=== PATIENT | female | born 1945 | race Caucasian/White ===

== ENCOUNTER → 2020-10-26 | Outpatient (REF) | payer MEDICARE | LOC: M LAB REF 17:43 | PROVIDERS: ATTEND Internal Medicine Nephrology | DX: N18.32 Chronic kidney disease, stage 3b (principal); I10 Essential (primary) hypertension ==

== ENCOUNTER → 2020-11-18 | Outpatient (CLI) | payer MEDICARE ==
[~2020-11-18] MED LIST: COLA100C5 PO; EQL400CA9 PO; LISI10TA22 PO; MELA3TAB49 PO; METF-838 PO; NIFE15CA PO; OXYC1TAB23 PO; SIMV40TA20 PO
== END ==
LOC: M LABSMTC 09:06
PROVIDERS: ATTEND Anesthesiology
DX: Z01.812 Encounter for preprocedural laboratory examination (principal)

== ENCOUNTER 2020-11-23 09:38 | Day surgery (SDC) | payer MEDICARE ==
[2020-11-23] VITALS (7 sets, daily range): BP systolic 130–159; BP diastolic 67–90
[~2020-11-23] VITALS: Ht 160 cm; Wt 86.6 kg
[~2020-11-23 09:38] MED LIST changes: +ACETAMINOPHEN *IV* 1,000 MG IV ONE; +LIDOCAINE 1% MDV 20ML VIAL SQ PRN; +LIDOCAINE 2% 100MG/5ML SDV (FOR ANES.) As Ordered ONE; +LR 1,000 ML IV ONE; +MIDAZOLAM INJ 2MG/2ML VIAL (J2250 PER 1MG) As Ordered ONE; -OXYC1TAB23 PO; +ROCURONIUM BROMIDE 50 MG/5 ML VIAL As Ordered ONE; +ceFAZolin SOD 2 GM in IV 1 EA IV ONE; +fentaNYL 250 MCG/5 ML INJECTION (J3010) As Ordered ONE; +propofoL 200 MG/20 ML VIAL As Ordered ONE
[2020-11-23 10:12] LABS: HEMATOCRIT 34.3 % (36.0-47.0); HEMOGLOBIN 11.7 g/dl (12.0-15.5); MEAN CORPUSCULAR HEMOGLOBIN 31.3 pg (27.0-33.0); MEAN CORPUSCULAR HGB CONC 34.1 g/dl (32.0-36.5); MEAN CORPUSCULAR VOLUME 91.7 fl (80.0-96.0); PLATELET COUNT, AUTOMATED 225 10^3/uL (150-450); RED BLOOD COUNT 3.74 10^6/uL (4.00-5.40); WHITE BLOOD COUNT 5.7 10^3/uL (4.0-10.0)
[2020-11-23 10:39] LABS: CALCIUM LEVEL 9.9 MG/DL (8.8-10.2); CREATININE FOR GFR 1.24 MG/DL (0.55-1.30); GLOMERULAR FILTRATION RATE 45.1 (>39); POTASSIUM SERUM 4.1 MEQ/L (3.5-5.1)
[2020-11-23] MEDS ORDERED: LIDOCAINE W/EPINEPHRINE 1% 20ML VIAL As Ordered ONE (11:45)
[2020-11-23] MEDS ORDERED: VASOPRESSIN INJ 20 UNITS/ML VIAL As Ordered ONE (11:45)
[2020-11-23] MEDS ORDERED: ACETAMINOPHEN 1000MG 100ML IV BTL (OFIRMEV) (J0131 PER 10MG) As Ordered ONE (12:43)
[2020-11-23] MEDS ORDERED: ONDANSETRON 4MG/2ML VIAL As Ordered ONE (12:43)
[2020-11-23] MEDS ORDERED: KETOROLAC 60MG 2ML VIAL As Ordered ONE (12:43)
[2020-11-23] MEDS ORDERED: SUGAMMADEX SODIUM 500 MG/5 ML VIAL (BRIDION) As Ordered ONE (13:02)
[2020-11-23] MEDS ORDERED: ESTROGENS VAGINAL CREAM 30GM As Ordered ONE (13:18)
[2020-11-23] MEDS ORDERED: OXYC1TAB23 PO (13:44)
[2020-11-23] MEDS ORDERED: PERCOCET 5MG/325MG TAB PO PRN (14:00)
[2020-11-23] MEDS ORDERED: ONDANSETRON 4MG/2ML VIAL IV PRN (14:00)
[2020-11-23] MEDS ORDERED: HYDROMORPHONE HCL 0.5 MG/ 0.5 ML SYRINGE (J1170 PER 1) IV PRN (14:00)
[2020-11-23] MEDS ORDERED: fentaNYL 100 MCG/2 ML INJECTION (J3010) IV PRN (14:00)
[2020-11-23] MEDS ORDERED: oxyCODONE 5MG TAB PO PRN (14:00)
[2020-11-23] MEDS ORDERED: LR 1,000 ML IV SCH ×2 (14:00)
--- NOTE | 2020-11-23 17:52 | RO ---
OPERATIVE NOTE DATE OF OPERATION: 11/23/2020 Layla is a 75-year-old female with a history of complete vaginal vault prolapse for hysterectomy. After counseling, a decision was made to proceed with sacrospinal vault suspension, possible posterior-anterior repair. PREOPERATIVE DIAGNOSIS: 1. Complete vaginal vault prolapse, post-hysterectomy. POSTOPERATIVE DIAGNOSIS: 1. Complete vaginal vault prolapse, post-hysterectomy. PROCEDURE: Sacrospinal vault suspension using an Anchorsure. Posterior repair. Perineorrhaphy. SURGEON: Aamir Calvillo DO GRAPHICS PROGRAMMER: ANESTHESIA: General COMPLICATIONS: None. ESTIMATED BLOOD LOSS: 100 mL FINDINGS: Complete vaginal vault prolapse with a very large rectocele. DESCRIPTION OF PROCEDURE: After obtaining informed consent, the patient was taken to the operating room where general anesthetic was found to be adequate. She was then draped and prepped in the usual sterile fashion in the dorsal lithotomy position. At this point, examination under anesthesia performed, revealed a complete vaginal vault prolapse with a significant rectocele, no enterocele noted. At this point, a weighted speculum was placed into the posterior fornix of the vagina. The apex of the vagina was identified. The sacrospinous ligament was palpated. An Allis was placed at the apex of the vaginal mucosa. Then a small incision approximately 1/2 inch was done at the apex. The vagina mucosa was dissected down towards the sacrospinous ligament. The sacrospinous ligament was palpated. At this point, an Anchorsure was brought to the sacrospinous ligament and anchored into the sacrospinous ligament. This was brought back out through the vagina, hemostat placed on it for later use. I then did hydrodissection with Pitressin solution in a midline fashion using three Allises. The apex of the vagina was held on tension as well as the vaginal orifice. After proper hydrodissection, a midline incision was made with a 5 blade. The posterior rectal mucosa was dissected off on either side. These were pushed all the way down to the reduce the significant amount of rectocele that was noted and in an imbricated fashion, the rectocele was then reduced with a series of interrupted [id number] sutures. After reducing the rectocele, the excess posterior vaginal tissue was cut away and sent to pathology for final diagnosis. We then placed a series of interrupted sutures in the vaginal mucosa. The top two was left for closure after the sacrospinous ligament fixation was completed. The posterior vaginal mucosa was closed all the way down to the orifice. At this point, the Dubose needle was used and one string of the Anchorsure was then anchored to the apex of the vagina, creating a jacquelyn. At this point, the apex of the vagina was brought to the right sacrospinous ligament. This was kind of brought in not to overtighten that area. After anchoring the apex of the vagina, then the two preplaced sutures at the level of the apex was then closed to bury the knot from the permanent suture from the Anchorsure. At this point, a good result was noted. I then turned my attention to the perineal body. A perineorrhaphy was performed. Excess skin and vaginal mucosa was removed. This was closed using a 2-0 Vicryl suture. After proper closure and good hemostasis was achieved, we placed a 2 inch packing soaked in Premarin cream. Galvan catheter was placed in the bladder for drainage for approximately 100 mL of clear urine. At this point, all instruments were removed. The patient tolerated the procedure well. She was then transferred to recovery room in stable condition. [facility]
[2020-11-23] MEDS: IBUPROFEN 800 MG TAB PO SCH (19:00)
[2020-11-23] MEDS ORDERED: SIMVASTATIN 40 MG TAB PO SCH (21:00)
[2020-11-24] MEDS: IBUPROFEN 800 MG TAB PO SCH ×2 (01:15→06:05)
[2020-11-24 02:45] VITALS: BP 115/64
[2020-11-24 06:00] VITALS: BP 118/65
[2020-11-24 07:58] VITALS: BP 128/56
== END 2020-11-24 10:23 | disposition home or self-care (01) ==
LOC: M SDC 09:38 → M MSPAV 17:35 → M SDC 11-24 10:23
PROVIDERS: ATTEND Obstetrics & Gynecology
DX: N99.3 Prolapse of vaginal vault after hysterectomy (principal); N81.6 Rectocele; I10 Essential (primary) hypertension; E11.9 Type 2 diabetes mellitus without complications; E78.5 Hyperlipidemia, unspecified; Z79.84 Long term (current) use of oral hypoglycemic drugs; Z79.899 Other long term (current) drug therapy
CPT/HCPCS: 36415; 57250; 57282; 80048; 85027; 86850; 86900; 86901; 88302; C1713; J0131; J0690; J1885; J2250; J2405; J3010

== ENCOUNTER → 2020-11-30 | Outpatient (REF) | payer MEDICARE ==
[~2020-11-30] MED LIST changes: -ACETAMINOPHEN *IV* 1,000 MG IV ONE; -LIDOCAINE 1% MDV 20ML VIAL SQ PRN; -LIDOCAINE 2% 100MG/5ML SDV (FOR ANES.) As Ordered ONE; -LR 1,000 ML IV ONE; -MIDAZOLAM INJ 2MG/2ML VIAL (J2250 PER 1MG) As Ordered ONE; +OXYC1TAB23 PO; -ROCURONIUM BROMIDE 50 MG/5 ML VIAL As Ordered ONE; -ceFAZolin SOD 2 GM in IV 1 EA IV ONE; -fentaNYL 250 MCG/5 ML INJECTION (J3010) As Ordered ONE; -propofoL 200 MG/20 ML VIAL As Ordered ONE
[2020-11-30 18:10] LABS: BACTERIA, URINE AUTO NEGATIVE (NEGATIVE); RBC, URINE AUTO 6 /HPF (0-3); SQUAMOUS EPITHELIAL CELL UR AU 3 /HPF (0-6); WBC, URINE AUTO 13 /HPF (0-3)
== END ==
LOC: M LAB REF 17:26
PROVIDERS: ATTEND Obstetrics & Gynecology
DX: R30.0 Dysuria (principal); Z09 Encounter for follow-up examination after completed treatment for conditions other than malignant neoplasm

== ENCOUNTER → 2020-12-08 | Outpatient (REF) | payer MEDICARE | LOC: M LAB REF 17:00 | PROVIDERS: ATTEND Obstetrics & Gynecology | DX: Z09 Encounter for follow-up examination after completed treatment for conditions other than malignant neoplasm (principal) ==

== ENCOUNTER → 2021-12-08 | Outpatient (REF) | payer MEDICARE | LOC: M LAB REF 17:05 | PROVIDERS: ATTEND Internal Medicine Nephrology | DX: N18.32 Chronic kidney disease, stage 3b (principal); D63.1 Anemia in chronic kidney disease; Z79.84 Long term (current) use of oral hypoglycemic drugs ==